=== PATIENT | male | born 1985 | race Caucasian/White ===

== ENCOUNTER → 2016-04-26 | Outpatient (CLI) | payer BC | END | disposition disaster alternative care site (69) | LOC: GLAB 10:30 | DX: Z31.41 Encounter for fertility testing (principal) ==

== ENCOUNTER → 2016-05-19 | Outpatient (CLI) | payer BC | END | disposition disaster alternative care site (69) | LOC: GRAD 08:51 | DX: N46.9 Male infertility, unspecified (principal) ==

== ENCOUNTER → 2016-05-20 | Outpatient (CLI) | payer BC | END | disposition disaster alternative care site (69) | LOC: GLAB 10:40 → LKUC 10:40 | DX: Z31.41 Encounter for fertility testing (principal); N46.9 Male infertility, unspecified ==